=== PATIENT | male | born 1990 ===

== ENCOUNTER 2016-06-21 15:12 | Emergency (ER) | payer SELFPAY ==
--- NOTE | 2016-06-26 10:00 | ER ---
ADMIT: 06/21/2016 RM/LOC: ER [facility] MR#: [id number] [facility] [address] [place], [place] [id number] [place] [address] [place] [address] Emergency Room Report SEX: M AGE: 25 : 1990 DATE: 06/21/2016 ADDENDUM: CHIEF COMPLAINT: Dental pain. HISTORY OF PRESENT ILLNESS: This is a 25-year-old male who has been dealing with this pain for 2 weeks. The pain has gotten so severe that he came into the ER. COURSE IN EMERGENCY ROOM: Injection was done into his mouth. Please see T- sheet for that procedure note. I did send him home with amoxicillin, Sawyer, and Zofran. Told him to follow up with dentist as soon as possible. CLINICAL IMPRESSION: Dental caries/tooth fracture. LANIE Matias / Jackson Suarez MD / trl JOB #: [id number] CC: Jackson Suarez MD, Attending Physician Vincent Neumann MD, Family Physician
== END 2016-06-21 16:20 | disposition home or self-care (01) ==
LOC: ER 15:12
PROC: 3E0T3BZ Introduction of Anesthetic Agent into Peripheral Nerves and Plexi, Percutaneous Approach (ICD-10-PCS; principal; 2016-06-21)
DX: S02.5XXA Fracture of tooth (traumatic), initial encounter for closed fracture (principal); Z79.899 Other long term (current) drug therapy; X58.XXXA Exposure to other specified factors, initial encounter